=== PATIENT | female | born 1945 | race Two or more races ===

== ENCOUNTER 2024-11-17 21:10 | Emergency (ER) | payer MEDICARE, MEDICAID, SELFPAY ==
[2024-11-17 21:11] VITALS: BMI 16.5
--- NOTE | 2024-11-17 21:14 | EKG_ITS ---
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
[2024-11-17 21:31] VITALS: BP 161/78; PULSE 74; RESP 22; TEMP 36.4; O2SAT 96
--- NOTE | 2024-11-17 21:48 | XR_ITS ---
Examination: CT brain head without contrast. 2-D sagittal coronal reconstructions Date and time of exam:November 17, 2024 10:39 PM INDICATIONS: Dizziness today CTDI: vol (mGy):4528 DLP: (mGycm):778 Technique: Multiple CT axial sections of the brain have been obtained, 5 mm slice thickness. Contrast has not been administered. 2-D sagittal, coronal reconstructions have been obtained Low dose protocols were performed. One or more of the following dose reduction techniques were used; automated exposure control, adjustment of the mA and/or KV according to patient size, use of iterative reconstruction technique. Findings: No significant ventricular enlargement. Intra-axial or extra-axial hemorrhage density is not seen. No mass effect or midline shift Basal cisterns are not remarkable. Fourth ventricle is midline. Cranial vault intact. Impression: Negative for acute hemorrhage, mass effect or midline shift advise clinical correlation and follow-up accordingly
--- NOTE | 2024-11-17 21:48 | XR_ITS ---
Examination: AP chest single view Technique an portable sitting AP chest single view Date and time: November 17, 2024 10:10 PM Comparison June 06, 2019 INDICATIONS: Chest pain today. FINDINGS: No significant cardiac enlargement Aortic valve replacement Mild increased markings right base Hyperexpansion Biapical pleural thickening No pulmonary edema IMPRESSION: COPD Early pneumonia right base
--- NOTE | 2024-11-17 21:49 | EDRME_ITS ---
Rapid Medical Screening Exam [facility] Arrival date/time: 11/17/24 21:10 78F with history of HTN, valve repair (2016), and anxiety presents to ED with several weeks of dizziness and N/V that is worse when she moves. Patient denies any pain.. Patient takes estradiol for HRT. Chief Complaint: Dizziness Vital signs: Vital Signs Temperature 97.6 F 11/17/24 21:31 Pulse Rate 74 11/17/24 21:31 Respiratory Rate 22 H 11/17/24 21:31 Blood Pressure 161/78 H 11/17/24 21:31 Pulse Oximetry (%) 96 11/17/24 21:31 Oxygen Delivery Method Room Air 11/17/24 21:31
[2024-11-17] MEDS: MECLIZINE HCL 25 MG TABLET PO (21:56)
[2024-11-17] MEDS: ONDANSETRON ODT 4 MG TABRAP PO (21:56)
[2024-11-17 23:20] LABS: Basophils % (Auto) 1 % (0-2.5); Eosinophils % (Auto) 0 % (0-10); Hematocrit 32.7 % (36.0-46.0); Hemoglobin 11.3 g/dL (12.0-16.0); Immature Granulocytes % (Auto) 0 % (0-0); Immature Granulocytes Auto 0.02 Thou/mm3 (0.00-0.00); Lymphocytes # (Auto) 0.7 Thou/mm3 (1.0-4.8); Lymphocytes % (Auto) 11 % (10-50); Mean Corpuscular HGB Conc 34.6 g/dl (31.0-37.0); Mean Corpuscular Hemoglobin 31.4 pg (25.0-35.0); Mean Corpuscular Volume 91 fL (80-100); Monocytes # (Auto) 0.3 Thou/mm3 (0.0-0.8); Monocytes % (Auto) 4 % (0-12); Neutrophils % (Auto) 84 % (37-80); Nucleated Red Blood Cell % 0 /100 WBC (0); Platelet Count 197 Thou/mm3 (140-440); RDW Standard Deviation 41.2 fL (36.4-46.3); White Blood Count 5.9 Thou/mm3 (3.6-11.0)
[2024-11-17 23:32] LABS: INR 1.1 (0.9-1.3); Partial Thromboplastin Time 26.9 Seconds (22.0-36.0); Prothrombin Time 11.8 Seconds (9.0-12.2)
[2024-11-17 23:36] LABS: Alanine Aminotransferase 12 U/L (10-49); Albumin, Serum 3.9 gm/dL (3.4-4.8); Albumin/Globulin Ratio 1.3 (1.2-2.2); Alkaline Phosphatase 85 U/L (46-116); Anion Gap 9 (7-16); Aspartate Amino Transferase 25 U/L (0-34); BUN/Creatinine Ratio 23 Ratio (12-20); Bilirubin,Total 0.7 mg/dL (0.3-1.2); Blood Urea Nitrogen 14 mg/dL (9-23); Calcium (Corrected) 9.1 mg/dL (8.5-10.1); Carbon Dioxide 30.2 mMol/L (20.0-31.0); Chloride 102 mMol/L (98-107); Creatinine (Component) 0.6 mg/dL (0.6-1.3); Estimated Creatinine Clearance 48.2 mL/min (>60); Glucose 140 mg/dL (74-106); Magnesium 1.8 mg/dL (1.6-2.6); Osmolality,Calculated 283 (275-295); Sodium 141 mMol/L (136-145); Total Protein 6.9 gm/dL (5.7-8.2); Troponin I < 0.020 ng/mL (0.0-0.045); eGFR > 60 See Note
[2024-11-18] VITALS (11 sets, daily range): BP systolic 110–153; BP diastolic 57–88; PULSE 71–139; RESP 9–26; TEMP 36.6–37.9; O2SAT 94–100
[2024-11-18 02:14] LABS: Collection Type, Urine Clean Catch; RBC,Urine 0 /hpf (0-3)
[2024-11-18 02:37] LABS: Bacteria,Urine Rare; Bilirubin,Urine Negative (Negative); Blood,Urine Negative (Negative); Clarity,Urine Turbid (Clear/Hazy); Color,Urine Yellow (Lt Yel-Yel); Culture Indicated,Urine Not Indicated; Glucose, Urine Negative (Negative); Hyaline Casts,Urine < 1 /hpf (0-1); Ketones,Urine 1+ (Negative); Leukocyte Esterase,Urine Positive (Negative); Nitrite,Urine Negative (Negative); Protein,Urine Trace (Neg - Trace); Specific Gravity,Urine 1.021 (1.001-1.035); Squamous Epithelial Cell,Urine 2 /hpf (0-5); WBC,Urine 5 /hpf (0-5)
--- NOTE | 2024-11-18 07:19 | EDNOTE_ITS ---
ED Dizzyness RME/HPI General Chief Complaint: Dizziness Stated Complaint: dizziness nausea and vomiting Time Seen by Provider: 11/18/24 06:34 Arrival date/time: 11/17/24 21:10 Limitations: no limitations RME / HPI RME / HPI Narrative: 11/17/24 21:10 78F with history of HTN, valve repair (2016), and anxiety presents to ED with several weeks of dizziness and N/V that is worse when she moves. Patient denies any pain.. Patient takes estradiol for HRT. DR. SINGH MAIN ED EVALUATION: 78 year old female with history of CAD, hypertension, hyperlipidemia presents to the ED for evaluation of room-spinning dizziness today. Reportedly has had similar dizziness intermittently over the course of 1 month and says it occurs mostly in the afternoon. Per son, dizziness usually occurs after performing her daily chores. Patient denies consulting PCP regarding dizziness. No other associated symptoms or complaints reported. Denies fevers, chills, sweats, ear pain, headache, chest pain, cough, shortness of breath, abdominal pain, nausea, vomiting, diarrhea, or urinary symptoms. Related Data Home Medications ?Medication ?Instructions ?Recorded ?Confirmed Alendronate Sodium * (FOSAMAX *) 70 mg PO Q7D #0 tabs 07/02/16 Aspirin Ec * (ECOTRIN *) 81 mg PO QDAY ##0 07/02/16 0 12/31/18 Diphenoxylate Hcl/Atrop Sulf * 1 tab PO TID PRN DIARRH EA #0 tabs 07/02/16 12/31/18 (LOMOTIL *) Fluticasone Propionate NASAL * 1 spry NASAL BID #0 spr y 07/02/16 12/31/18 (FLONASE *) Megestrol Acetate * (MEGACE *) 40 mg PO QDAY #0 tabs 0 07/02/16 12/31/18 alprazolam 0.25 mg tablet 0.25 mg PO BID #0 tabs 07/0212/31/18 atorvastatin 20 mg tablet (Lipitor) 20 mg PO HS #0 tab s 07/02/16 12/31/18 carvedilol 3.125 mg tablet (Coreg) 3.125 mg PO BID #0 tabs 07/02/16 12/31/18 docusate sodium 100 mg capsule 100 mg PO QDAY #0 caps 07/02/16 12/31/18 (Colace) Previous Rx's ?Medication ?Instructions ?Recorded meclizine 25 mg tablet 25 mg PO TID PRN dizziness # 30 tabs 12/31/18 meclizine 25 mg chewable tablet 12.5 mg (1/2 x 25 mg) PO TID 11/18/24 (Antivert) dizzyness #14 tabs Allergies Allergy/AdvReac Type Severity Reaction Status Date / Time meperidine (From Demerol) AdvReac Intermediate BLACKS OUT Verified 04/11/19 17:45 morphine AdvReac Intermediate BLACKS OUT Verified 04/11/19 17:45 Review of Systems Review of Systems Narrative Review of Systems: GEN: No fever, no chills, no weight loss EYES: No discharge, no visual changes, no pain HEENT: No ear pain, no congestion, no sore throat PULM: No shortness of breath, no cough, no congestion CV: No chest pain, no dyspnea on exertion, no palpitations GI: No nausea, no vomiting, no diarrhea, no pain, no constipation : No frequency, no urgency and no dysuria MUSC/SKEL No joint pain, no back pain SKIN: No rash PSYCH: No hallucinations, no depression HEME/LYMPH: No easy bleeding or bruising tendencies NEURO: No weakness, no headache, +dizziness Past Medical History Past Medical History NEUROLOGIC: Positive Neurological Disorders and Cerebrovascular Accident CARDIAC: Positive Cardiac Disorders (heart valve replacement 2015), Hypercholesterolemia and Hypertension GASTROINTESTINAL: Positive Gastrointestinal Disorders and Gastroesophageal Reflux Disease MUSCULOSKELETAL: Positive Osteoporosis OTHER HISTORY: Positive Hospitalization Surgical History SURGICAL: Positive Open Heart Surgery, Valve Replacement, of Shoulder Sx and of Back Surgery Social History SMOKING STATUS: Never smoker ED Exam General Limitations: Present no limitations General appearance: Present alert and in no apparent distress Head Head exam: Present atraumatic, normocephalic and normal inspection Eye Eye exam: Present normal appearance, PERRL and EOMI ENT ENT exam: Present normal exam, normal oropharynx, mucous membranes moist, TM's normal bilaterally and other (small amount of wax noted in the right ear ) Neck Neck exam: Present normal inspection, full ROM and trachea midline Chest Chest inspection: Present normal inspection and symmetric chest wall rise Respiratory Respiratory exam: Present normal lung sounds bilaterally Cardiovascular Cardiovascular exam: Present regular rate, normal rhythm and normal heart sounds Abdominal Exam Abdominal exam: Present soft and normal bowel sounds Extremities Exam Extremities exam: Present normal inspection and full ROM Back Exam Back exam: Present normal inspection and full ROM Neurological Exam Neurological exam: Present alert, oriented X3 and CN II-XII intact Psychiatric Psychiatric exam: Present normal affect and normal mood Skin Skin exam: Present warm, dry, intact and normal color Course Quality Measures none Orders Category Date Time Status Blood glucose [Bedside Blood Glucose] NOW Care 11/17/24 21:27 Completed EKG (ED ONLY) *Do not use* NOW Care 11/17/24 21:[address] head/brain wo con Stat Exams 11/17/24 21:48 Completed EKG (ED Only) Stat Exams 11/17/24 21:14 Draft XR chest 1V portable Stat Exams 11/17/24 21:48 Completed CBC Stat Lab 11/17/24 22:54 Completed Comprehensive Metabolic Panel Stat Lab 11/17/24 22:54 Completed Magnesium Stat Lab 11/17/24 22:54 Completed Partial Thromboplastin Time Stat Lab 11/17/24 22:54 Completed Prothrombin Time with INR Stat Lab 11/17/24 22:54 Completed Troponin I Stat Lab 11/17/24 22:54 Completed Urinalysis, C/S if Indicated Stat Lab 11/18/24 01:56 Completed Meclizine HCl [Antivert] Med 11/18/24 07:09 Discontinued 12.5 mg PO X1 ONE Meclizine HCl [Antivert] Med 11/17/24 21:48 Discontinued 25 mg PO X1 ONE Ondansetron Odt [Zofran Odt] Med 11/17/24 21:48 Discontinued 4 mg PO X1 ONE Vital Signs Vital signs: Vital Signs Temperature 97.6 F 11/17/24 21:31 Pulse Rate 74 11/17/24 21:31 Respiratory Rate 22 H 11/17/24 21:31 Blood Pressure 161/78 H 11/17/24 21:31 Pulse Oximetry (%) 96 11/17/24 21:31 Oxygen Delivery Method Room Air 11/17/24 21:31 Pulse ox is 96% on room air which is adequate. Dizziness MDM Narrative MDM Narrative:: Carly Delacruz am scribing for and in the presence of Dr. Singh. Patient remains clinically stable throughout the emergency department visit. We reviewed all the results, analysis, and treatment plans. Patient is amenable to discharge. Strict return precautions were outlined. Patient was discharged in stable condition. Patient data External records reviewed:: [facility] previous records (I reviewed ED visit on 06/06/2019 ) Clinical information provided by:: patient and family (son- adds to HPI) Social determinants that could affect healthcare access:: none Patient has the following chronic illnesses:: CAD, hypertension, hyperlipidemia How is presenting disease/condition affected by chronic disease/condition?: exacerbated by Evaluation data The following diagnostics were reviewed and interpreted by me:: lab results, radiology exam(s) and EKG tracing(s) (EKG @ 21:33 11/17/2024. Sinus rhythm, rate 71, first degree AV block, no STEMI. ) Lab and/or radiology exams considered but not ordered:: None Interpretation Summary: Ordering Physician: Obinna Greene PA-C Date of Service: 11/17/24 Procedure(s): XR chest 1V portable Accession Number(s): [id number] cc: Reed Robb MD; NO PRIMARY/FAMILY,PHYSICIAN; Obinna Greene PA-C~ Examination: AP chest single view Technique an portable sitting AP chest single view Date and time: November 17, 2024 10:10 PM Comparison June 06, 2019 INDICATIONS: Chest pain today. FINDINGS: No significant cardiac enlargement Aortic valve replacement Mild increased markings right base Hyperexpansion Biapical pleural thickening No pulmonary edema IMPRESSION: COPD Early pneumonia right base Dictated By: Reed Robb MD Signed By: <Electronically signed by Reed Robb MD in OV> 11/17/24 2253 ======= Ordering Physician: Obinna Greene PA-C Date of Service: 11/17/24 Procedure(s): CT head/brain wo con Accession Number(s): [id number] cc: Reed Robb MD; NO PRIMARY/FAMILY,PHYSICIAN; Obinna Greene PA-C~ Examination: CT brain head without contrast. 2-D sagittal coronal reconstructions Date and time of exam:November 17, 2024 10:39 PM INDICATIONS: Dizziness today CTDI: vol (mGy):4528 DLP: (mGycm):778 Technique: Multiple CT axial sections of the brain have been obtained, 5 mm slice thickness. Contrast has not been administered. 2-D sagittal, coronal reconstructions have been obtained Low dose protocols were performed. One or more of the following dose reduction techniques were used; automated exposure control, adjustment of the mA and/or KV according to patient size, use of iterative reconstruction technique. Findings: No significant ventricular enlargement. Intra-axial or extra-axial hemorrhage density is not seen. No mass effect or midline shift Basal cisterns are not remarkable. Fourth ventricle is midline. Cranial vault intact. Impression: Negative for acute hemorrhage, mass effect or midline shift advise clinical correlation and follow-up accordingly Dictated By: Reed Robb MD Signed By: <Electronically signed by Reed Robb MD in OV> 11/17/24 4385 Medications / Prescriptions Medications or Prescriptions considered but not ordered:: None Medication administrations:: Medication Administration History Discontinued Medications Meclizine HCl (Meclizine Hcl 25 Mg Tablet) 25 mg PO X1 ONE Stop: 11/17/24 21:49 Last Admin: 11/17/24 21:56 Dose: 25 mg Documented By: Meclizine HCl (Meclizine Hcl 25 Mg Tablet) 12.5 mg PO X1 ONE Stop: 11/18/24 07:10 Last Admin: 11/18/24 07:45 Dose: 12.5 mg Documented By: CG Ondansetron HCl (Ondansetron Odt 4 Mg Tabrap) 4 mg PO X1 ONE; Protocol Stop: 11/17/24 21:49 Last Admin: 11/17/24 21:56 Dose: 4 mg Documented By: See above Consultations Consultation(s) initiated? (list below): No Diagnosis Dizziness Differential Diagnosis: benign paroxysmal positional vertigo, orthostatic hypotension, cerebrovascular accident, transient cerebral ischemia and other (Vertigo ) Most likely diagnosis given after review of the tests above:: dizziness Admission Indicated Admission indicated?: not indicated Admission Request Was there a request for admission?: No Disposition Plan Disposition Plan: Discharge Discharge Attestation Discharge Attestation: The patient and all family members were given an opportunity to ask questions and understood the discharge instructions. Discharge instructions specifically effects, indications for sooner follow up or return to the emergency department, and the expected course of current diagnosis. Patient condition: Stable Discharge Plan Plan Patient Disposition: HOME (Self Care) Prescriptions/Referrals Prescriptions/Med Rec: New meclizine [Antivert] 25 mg tablet,chewable 12.5 mg PO TID MDD 3 Qty: 14 0RF No Action Aspirin Ec * (ECOTRIN *) 81 MG TABLET.DR 81 mg PO QDAY Qty: 0 atorvastatin [Lipitor] 20 MG tablet 20 mg PO HS Qty: 0 carvedilol [Coreg] 3.125 MG tablet 3.125 mg PO BID Qty: 0 Megestrol Acetate * (MEGACE *) 40 MG tablet 40 mg PO QDAY Qty: 0 alprazolam 0.25 MG tablet 0.25 mg PO BID Qty: 0 docusate sodium [Colace] 100 MG capsule 100 mg PO QDAY Qty: 0 Alendronate Sodium * (FOSAMAX *) 70 MG tablet 70 mg PO Q7D Qty: 0 Fluticasone Propionate NASAL * (FLONASE *) 160 SPRAY/BTL SPRAY 1 spry NASAL BID Qty: 0 Diphenoxylate Hcl/Atrop Sulf * (LOMOTIL *) 1 TAB tablet 1 tab PO TID PRN (Reason: DIARRHEA) Qty: 0 meclizine 25 mg tablet 25 mg PO TID PRN (Reason: dizziness) Qty: 30 0RF Referrals: No Primary/Family,Physician [Primary Care Provider] - In 1 week Problem List Clinical Impression: Dizziness Patient/Caregiver Discharge Instructions Education Materials: ED Dizziness, Uncertain Cause Additional Instructions: Follow-up with your primary care doctor in 3 to 5 days for recheck and referral to see ENT specialist for a formal audiogram. You can return to the emergency department sooner if symptoms worsen or if you notice any new, concerning issues. Print Language: Welsh Stand Alone Forms: Diane Award Info., Patient Portal Info Letter
[2024-11-18] MEDS: MECLIZINE HCL 25 MG TABLET 12.5 MG PO (07:45)
== END 2024-11-18 08:29 | disposition home or self-care (01) ==
PROVIDERS: Physician Assistant; Emergency Provider Family Medicine
DX: R42 Dizziness and giddiness (principal); J44.0 Chronic obstructive pulmonary disease with (acute) lower respiratory infection; J18.9 Pneumonia, unspecified organism; I10 Essential (primary) hypertension; I25.10 Atherosclerotic heart disease of native coronary artery without angina pectoris; I44.0 Atrioventricular block, first degree; E78.00 Pure hypercholesterolemia, unspecified; Z95.2 Presence of prosthetic heart valve; Z79.890 Hormone replacement therapy
CPT/HCPCS: 36415; 70450; 71045; 80053; 81001; 83735; 84484; 85025; 85610; 85730; 93005; 99284; Q0162; A9270

== ENCOUNTER 2025-04-17 07:28 | Emergency (ER) | payer MEDICARE, MEDICAID, SELFPAY ==
--- NOTE | 2025-04-17 07:32 | XR_ITS ---
Examination: Right hip AP, lateral, AP pelvis 3 views Technique: Hip AP lateral, AP pelvis, 3 views Exam date and time: April 17, 2025, 0746 hours INDICATIONS: Patient fell today with injury to the right hip, right hip pain. FINDINGS: Acute right hip fracture, partly intertrochanteric Angulation at the fracture site Severe osteopenia Left hip bones of the pelvis intact IMPRESSION: Acute right hip fracture, partly intertrochanteric.
[2025-04-17 07:39] VITALS: PULSE 73; RESP 16; O2SAT 96; BMI 16.5
[2025-04-17 07:46] VITALS: BP 177/74; PULSE 72; RESP 16; TEMP 36.4; O2SAT 98
--- NOTE | 2025-04-17 07:46 | EDNOTE_ITS ---
Lower Extremity Injury RME/HPI General Chief Complaint: Fall Stated Complaint: FALL , HIP INJURY Time Seen by Provider: 04/17/25 07:32 Arrival date/time: 04/17/25 07:28 RME / HPI RME / HPI Narrative: 79 yo female patient with history of CVA, CAD, hypertension, hyperlipidemia BIBA c/o right hip pain and LBP. Patient states she got up this morning to get dressed when she slipped and fell. Last PO intake 20:00 last night. Related Data Home Medications ?Medication ?Instructions ?Recorded ?Confirmed Alendronate Sodium * (FOSAMAX *) 70 mg PO Q7D #0 tabs 07/02/16 Aspirin Ec * (ECOTRIN *) 81 mg PO QDAY ##0 07/02/16 0 12/31/18 Diphenoxylate Hcl/Atrop Sulf * 1 tab PO TID PRN DIARRH EA #0 tabs 07/02/16 12/31/18 (LOMOTIL *) Fluticasone Propionate NASAL * 1 spry NASAL BID #0 spr y 07/02/16 12/31/18 (FLONASE *) Megestrol Acetate * (MEGACE *) 40 mg PO QDAY #0 tabs 0 07/02/16 12/31/18 alprazolam 0.25 mg tablet 0.25 mg PO BID #0 tabs 07/0212/31/18 atorvastatin 20 mg tablet (Lipitor) 20 mg PO HS #0 tab s 07/02/16 12/31/18 carvedilol 3.125 mg tablet (Coreg) 3.125 mg PO BID #0 tabs 07/02/16 12/31/18 docusate sodium 100 mg capsule 100 mg PO QDAY #0 caps 07/02/16 12/31/18 (Colace) Previous Rx's ?Medication ?Instructions ?Recorded meclizine 25 mg tablet 25 mg PO TID PRN dizziness # 30 tabs 12/31/18 meclizine 25 mg chewable tablet 12.5 mg (1/2 x 25 mg) PO TID 11/18/24 (Antivert) dizzyness #14 tabs Allergies Allergy/AdvReac Type Severity Reaction Status Date / Time meperidine (From Demerol) AdvReac Intermediate BLACKS OUT Verified 04/11/19 17:45 morphine AdvReac Intermediate BLACKS OUT Verified 04/11/19 17:45 Review of Systems Review of Systems Systems Reviewed: All systems reviewed, normal except as documented Past Medical History Past Medical History NEUROLOGIC: Positive Neurological Disorders and Cerebrovascular Accident CARDIAC: Positive Cardiac Disorders (heart valve replacement 2015), Hypercholesterolemia and Hypertension GASTROINTESTINAL: Positive Gastrointestinal Disorders and Gastroesophageal Reflux Disease MUSCULOSKELETAL: Positive Osteoporosis OTHER HISTORY: Positive Hospitalization Surgical History SURGICAL: Positive Open Heart Surgery and Valve Replacement Social History SMOKING STATUS: Never smoker ED Exam Narrative Physical exam: GENERAL APPEARANCE: alert and oriented x 4, well-developed, well-nourished HEENT: Normocephalic, atraumatic; pupils equal, round, reactive to light; EOMI; mucous membranes pink, moist; oropharynx clear NECK: Supple LUNGS: CTABL; no wheezes, no rales, no rhonchi HEART: Regular rate, regular rhythm; normal S1, S2; no murmurs ABDOMEN: non distended; normal BS; soft, no tenderness, no guarding, no rebound; no masses, no organomegaly, no hernia EXTREMITIES: The right leg is shortened and externally rotated, neurovascularly intact, limited ROM secondary to pain; no edema NEUROLOGIC: awake; alert and oriented x4; cranial nerves II-XII grossly intact PSYCHIATRIC: appropriate mood and affect SKIN: warm, dry, normal color; no rashes Course Quality Measures none Orders Category Date Time Status EKG (ED ONLY) *Do not use* NOW Care 04/17/25 09:32 Completed Krishna [Urinary Catheter] NOW Care 04/17/25 11:29 Active NPO NOW Care 04/17/25 10:47 Active Referral - Top Cutter Stat Cons 04/17/25 08:59 Active Diet NPO (NOW) Diet 04/17/25 10:47 Active EKG (ED Only) Stat Exams 04/17/25 09:32 Draft XR hip RT w pelvis 2-3V Stat Exams 04/17/25 07:32 Completed CBC Stat Lab 04/17/25 10:03 Completed CMP [Comprehensive Metabolic Panel] Stat Lab 04/17/25 10:03 Completed Magnesium Stat Lab 04/17/25 10:03 Completed PT [Prothrombin Time with INR] Stat Lab 04/17/25 10:03 Completed PTT [Partial Thromboplastin Time] Stat Lab 04/17/25 10:03 Completed Magnesium Sulfate 1 gm Ivpb [Magnesium Sulfate Ivpb] Med 04/17/25 10:43 Active 1 gm in 100 ml IV X1 Morphine* Inj Med 04/17/25 10:54 Discontinued 2 mg IVP X1 ONE Ondansetron Inj [Zofran Inj] Med 04/17/25 10:54 Discontinued 4 mg IVP X1 ONE Vital Signs Vital signs: Vital Signs Temperature 97.6 F 04/17/25 07:46 Pulse Rate 72 04/17/25 07:46 Respiratory Rate 16 04/17/25 07:46 Blood Pressure 177/74 H 04/17/25 07:46 Pulse Oximetry (%) 98 04/17/25 07:46 Oxygen Delivery Method Room Air 04/17/25 07:46 Pulse ox is 98% on room air which is adequate. Extremity Injury, Lower Patient data External records reviewed:: [facility] previous records and EMS form Clinical information provided by:: patient and EMS Social determinants that could affect healthcare access:: none Patient has the following chronic illnesses:: CVA, CAD, hypertension, hyperlipidemia How is presenting disease/condition affected by chronic disease/condition?: exacerbated by Evaluation data The following diagnostics were reviewed and interpreted by me:: lab results, radiology exam(s) and EKG tracing(s) (EKG @ 09:53 AM. Normal sinus rhythm, rate 80, Q-wave in V1 through V3, ST segment flattening in lead I and V1) Lab and/or radiology exams considered but not ordered:: None Interpretation Summary: Ordering Physician: Cindi Castanon MD Date of Service: 04/17/25 Procedure(s): XR hip RT w pelvis 2-3V Accession Number(s): [id number] cc: Reed Robb MD; NO PRIMARY/FAMILY,PHYSICIAN; Cindi Castanon MD~ Examination: Right hip AP, lateral, AP pelvis 3 views Technique: Hip AP lateral, AP pelvis, 3 views Exam date and time: April 17, 2025, 0746 hours INDICATIONS: Patient fell today with injury to the right hip, right hip pain. FINDINGS: Acute right hip fracture, partly intertrochanteric Angulation at the fracture site Severe osteopenia Left hip bones of the pelvis intact IMPRESSION: Acute right hip fracture, partly intertrochanteric. Dictated By: Reed Robb MD Signed By: <Electronically signed by Reed Robb MD in OV> 04/17/25 0813 Medications / Prescriptions Medications or Prescriptions considered but not ordered:: None Medication administrations:: Medication Administration History Magnesium Sulfate/Dextrose (Magnesium Sulfate Ivpb) 1 gm in 100 mls @ 100 mls/hr IV X1 ONE Stop: 04/17/25 11:42 Last Admin: 04/17/25 10:53 Dose: 100 mls/hr Documented By: DB Discontinued Medications Morphine Sulfate (Morphine Sulf Inj 4 Mg/Ml Vial) 2 mg IVP X1 ONE Stop: 04/17/25 10:55 Last Admin: 04/17/25 11:05 Dose: 1 mg Documented By: DB Comments: PT ONLY GOT 1MG, I WAS PUSHING THE MORPHINE THE PT STATED, STOP, IS MAKING ME FEEL LIKE I CANT BREATH... MY LIPS FEEL NUMB! DR. CASTANON MADE AWARE Ondansetron HCl (Ondansetron Inj 2 Mg/Ml Inj 2 Ml) 4 mg IVP X1 ONE Stop: 04/17/25 10:55 Last Admin: 04/17/25 11:04 Dose: 4 mg Documented By: DB See above Consultations Consultation(s) initiated? (list below): Yes Consultation #1 (Physician, Specialty, Details): Patient will require transfer for orthopedics. D/W orthopedics surgeon at [facility]. Recommends lab work prior to transfer. Labs ordered. Consultation #2 (Physician, Specialty, Details): Dr. Walls at [facility] accepts the patient ER to ER. Diagnosis Most likely diagnosis given after review of the tests above:: Rigth hip fracture Admission Indicated Admission indicated?: not indicated Explain why admission is indicated or not indicated:: txfer to [facility] specialty center at [facility] for ortho Admission Request Was there a request for admission?: No Disposition Plan Disposition Plan: Transfer Discharge Plan Plan Patient Disposition: er Acute Care [facility] Facility Pt Being Transferred to: [facility] Service Needed for Transfer: Orthopedics Discharge Disposition comment: Dr. Walls accepted, ER to ER Patient condition on transfer: Stable Prescriptions/Referrals Prescriptions/Med Rec: No Action Aspirin Ec * (ECOTRIN *) 81 MG TABLET. 81 mg PO QDAY Qty: 0 atorvastatin [Lipitor] 20 MG tablet 20 mg PO HS Qty: 0 carvedilol [Coreg] 3.125 MG tablet 3.125 mg PO BID Qty: 0 Megestrol Acetate * (MEGACE *) 40 MG tablet 40 mg PO QDAY Qty: 0 alprazolam 0.25 MG tablet 0.25 mg PO BID Qty: 0 docusate sodium [Colace] 100 MG capsule 100 mg PO QDAY Qty: 0 Alendronate Sodium * (FOSAMAX *) 70 MG tablet 70 mg PO Q7D Qty: 0 Fluticasone Propionate NASAL * (FLONASE *) 160 SPRAY/BTL SPRAY 1 spry NASAL BID Qty: 0 Diphenoxylate Hcl/Atrop Sulf * (LOMOTIL *) 1 TAB tablet 1 tab PO TID PRN (Reason: DIARRHEA) Qty: 0 meclizine 25 mg tablet 25 mg PO TID PRN (Reason: dizziness) Qty: 30 0RF meclizine [Antivert] 25 mg tablet,chewable 12.5 mg PO TID MDD 3 Qty: 14 0RF Referrals: No Primary/Family,Physician [Primary Care Provider] - In 1 week Problem List Clinical Impression: Closed fracture of right hip Patient/Caregiver Discharge Instructions Print Language: Welsh Stand Alone Forms: Diane Award Info., Patient Portal Info Letter
--- NOTE | 2025-04-17 09:08 | PC.CC ---
Addendum entered by Tomi Mei RN 04/17/25 12:47: 1247: Informed bedside nurse Javi of change of pick pulling machine operator time. Addendum entered by Tomi Mei RN 04/17/25 12:45: 1244: received call from dispatch requesting pick pulling machine operator will be at 1400 Addendum entered by Tomi Mei RN 04/17/25 12:09: 1144: Pt and pt's son agreeable to transfer. Transfer packet w/ CDx1 given to safety inspector Lanise. Transport set up for 1300 pick pulling machine operator. Bedside nurse Javi made aware. 1128: Lianna called back, Dr. Walls accepted pt ER TO ER. Call report to [phone]. Addendum entered by Tomi Mei RN 04/17/25 11:26: 1125: spoke to Lianna, she confirmed receipt of lab results. She present to Dr. Walls. Shes waiting to hear back from Dr. Walls Addendum entered by Tomi Mei RN 04/17/25 10:50: 1050: lab results sent to [facility] Addendum entered by Tomi Mei RN 04/17/25 09:36: 0927: peer to peer w/ DR. Walls and Dr. Castanon completed. Dr. Walls will re-review for acceptance once lab results are available. I will send lab results once available. 0924: received call back from Lianna, she spoke to Dr. Castanon 0914: Informed Dr. Castanon to drawn labs as requested by [facility] transfer nurse. she stated she will order. 0913: Lianan called back asking about labs. Informed her no labs were drawn. I will reach out to Dr. Castanon to draw labs. Addendum entered by Tomi Mei RN 04/17/25 09:11: 0910: spoke to Lianna w/ Kayleigh, she will review clinicals and call back. Original Note: 0908: sent clinicals and image to [facility]. 0905: received order for transfer request for orthopedic for right hip fracture. Dr Castanon entered order.
--- NOTE | 2025-04-17 09:32 | EKG_ITS ---
[facility] Test Date: 2025-04-17 Pat Name: KANU ESTRADA Department: Room: - Gender: Female [employer]: : 1945 Requested By: Cindi Aleman Order Number: [id number] Reading MD: Cindi Aleman Measurements Intervals Pegram Rate: 80 P: 72 DC: 230 QRS: 0 QRSD: 79 T: 79 QT: 355 QTc: 410 Interpretive Statements SINUS RHYTHM WITH FIRST DEGREE AV BLOCK ANTEROSEPTAL MYOCARDIAL INFARCTION , OF INDETERMINATE AGE [40+ ms Q WAVE IN V1-V4] Compared to ECG 11/17/2024 21:33:02 No significant changes /[id number]
[2025-04-17 10:21] LABS: Basophils # (Auto) 0.0 Thou/mm3 (0.0-0.2); Basophils % (Auto) 0 % (0-2.5); Eosinophils # (Auto) 0.0 Thou/mm3 (0.0-0.5); Eosinophils % (Auto) 0 % (0-10); Hematocrit 29.9 % (36.0-46.0); Hemoglobin 10.1 g/dL (12.0-16.0); Immature Granulocytes Auto 0.03 Thou/mm3 (0.00-0.00); Lymphocytes # (Auto) 0.7 Thou/mm3 (1.0-4.8); Lymphocytes % (Auto) 7 % (10-50); Mean Corpuscular HGB Conc 33.8 g/dl (31.0-37.0); Mean Corpuscular Hemoglobin 31.7 pg (25.0-35.0); Mean Corpuscular Volume 94 fL (80-100); Monocytes # (Auto) 0.4 Thou/mm3 (0.0-0.8); Monocytes % (Auto) 4 % (0-12); Neutrophils # (Auto) 7.9 Thou/mm3 (1.8-7.7); Neutrophils % (Auto) 88 % (37-80); Nucleated Red Blood Cell # 0.00 Thou/mm3 (0.00-0.00); Nucleated Red Blood Cell % 0 /100 WBC (0); Platelet Count 166 Thou/mm3 (140-440); RDW Standard Deviation 42.8 fL (36.4-46.3); Red Blood Count 3.19 Miln/mm3 (4.00-5.20); White Blood Count 9.1 Thou/mm3 (3.6-11.0)
[2025-04-17 10:30] VITALS: BP 116/58; PULSE 88; RESP 16; TEMP 36.6; O2SAT 98
[2025-04-17 10:31] LABS: INR 1.1 (0.9-1.3); Partial Thromboplastin Time 26.1 Seconds (22.0-36.0); Prothrombin Time 11.7 Seconds (9.0-12.2)
[2025-04-17 10:35] LABS: Alanine Aminotransferase 11 U/L (10-49); Albumin, Serum 3.4 gm/dL (3.4-4.8); Albumin/Globulin Ratio 1.4 (1.2-2.2); Alkaline Phosphatase 82 U/L (46-116); Anion Gap 8 (7-16); Aspartate Amino Transferase 25 U/L (0-34); BUN/Creatinine Ratio 22 Ratio (12-20); Bilirubin,Total 0.7 mg/dL (0.3-1.2); Blood Urea Nitrogen 13 mg/dL (9-23); Calcium 8.7 mg/dL (8.3-10.6); Calcium (Corrected) 9.2 mg/dL (8.5-10.1); Carbon Dioxide 28.4 mMol/L (20.0-31.0); Chloride 105 mMol/L (98-107); Creatinine (Component) 0.6 mg/dL (0.6-1.3); Estimated Creatinine Clearance 47.4 mL/min (>60); Globulin 2.4 gm/dL (2.3-3.5); Glucose 102 mg/dL (74-106); Magnesium 1.5 mg/dL (1.6-2.6); Osmolality,Calculated 281 (275-295); Potassium 3.6 mMol/L (3.4-5.1); Sodium 141 mMol/L (136-145); Total Protein 5.8 gm/dL (5.7-8.2); eGFR > 60 See Note
[2025-04-17] MEDS: ONDANSETRON INJ 2 MG/ML INJ 2 ML 4 MG IVP (11:04)
[2025-04-17] MEDS: MORPHINE SULF INJ 4 MG/ML VIAL 2 MG IVP (11:05)
== END 2025-04-17 13:58 | disposition short-term general hospital (02) ==
PROVIDERS: Emergency Provider Emergency Medicine
DX: S72.001A Fracture of unspecified part of neck of right femur, initial encounter for closed fracture (principal); W19.XXXA Unspecified fall, initial encounter
CPT/HCPCS: 36415; 73502; 80053; 83735; 85025; 85610; 85730; 93005; 96365; 96375; 99284; A4314; J2270; J2405; J3475